=== PATIENT | male | born 1950 | race Caucasian/White ===

== ENCOUNTER 2022-12-26 19:19 | Emergency (ER) | payer OTHER ==
[~2022-12-26] VITALS: Ht 170.2 cm; Wt 93.0 kg
[2022-12-26 19:20] VITALS: BP_SYST 136
[2022-12-26] MEDS ORDERED: methylPREDNISolone SOD SUCC/PF 62.5 MG/ML VIAL IM ONE (19:30)
[2022-12-26] MEDS ORDERED: DIPHENHYDRAMINE INJ 50 MG/ML VIAL IM ONE (19:30)
[2022-12-26] MEDS ORDERED: FEXO180T94 PO (20:06)
[2022-12-26] MEDS ORDERED: PRED20TA PO (20:06)
[2022-12-26 20:12] VITALS: BP_SYST 136
== END 2022-12-26 20:12 | disposition home or self-care (01) ==
LOC: SED 19:19
DX: L23.7 Allergic contact dermatitis due to plants, except food (principal); R21 Rash and other nonspecific skin eruption; E11.9 Type 2 diabetes mellitus without complications; I10 Essential (primary) hypertension; E78.5 Hyperlipidemia, unspecified; Z79.899 Other long term (current) drug therapy
CPT/HCPCS: 99284; 96372; J1200; J2930